=== PATIENT | male | born 1995 | race American Indian/Alaskan Native ===

== ENCOUNTER 2023-08-24 11:17 | Emergency (ER) | payer SELFPAY ==
--- NOTE | ~2023-08-24 | XR_ITS ---
Examination: Bilateral knee and bilateral femur. Clinical indications: Pain. COMPARISON: None. TECHNIQUE: 2 views each femur. Left knee 2 views. FINDINGS: Right knee: The tricompartment joint space is maintained normal. No visible acute fracture or dislocation seen. No loose bodies are bony erosive changes. No joint effusion. Right femur: There is large geographic lucency with irregular sclerotic margins along the right superior medial femoral head suggestive of avascular necrosis changes. No visible acute fracture or dislocation seen. The soft tissues are normal. Left knee: The tricompartment joint space is maintained normal. No acute fracture, dislocation or subluxation. The soft tissues are normal. Left femur: There is geographic lucency with irregular sclerotic margins along the superolateral femoral head without any visible acute fracture or dislocation. There is maintained joint space. The soft tissues are normal. XR/XR knee RT 2V IMPRESSION: Large orogastric lucencies along the superolateral femoral heads bilaterally suggestive of avascular necrosis. Correlate with MRI hips. Unremarkable bilateral knee exam.
--- NOTE | ~2023-08-24 | US_ITS ---
EXAMINATION: US VENOUS ULTRASOUND WITH DOPPLER LOWER EXTREMITY, BILATERAL CLINICAL INFORMATION: Bilateral thigh pain COMPARISON: None available. TECHNIQUE: Ultrasound of the deep veins is performed from the hip to the calf with compression sonography and color and pulse Doppler assessment. Spectral analysis with color-flow imaging is performed. FINDINGS: RIGHT: There is normal venous compression and respiratory variation and augmented flow. The visualized common femoral vein, superficial femoral vein, profunda femoral vein, popliteal vein, and the trifurcation region shows no evidence of deep venous thrombosis. There is no significant popliteal fossa cyst. LEFT: There is normal venous compression and respiratory variation and augmented flow. The visualized common femoral vein, superficial femoral vein, profunda femoral vein, popliteal vein, and the trifurcation region shows no evidence of deep venous thrombosis. There is no significant popliteal fossa cyst. If the patient's symptoms persist, followup ultrasound in 5 days 7 days might be of value to exclude proximal propagation from a non-visualized calf vein. US/US venous duplex LE BI IMPRESSION: No DVT demonstrated in the bilateral lower extremity.
--- NOTE | ~2023-08-24 | XR_ITS ---
Examination: Bilateral knee and bilateral femur. Clinical indications: Pain. COMPARISON: None. TECHNIQUE: 2 views each femur. Left knee 2 views. FINDINGS: Right knee: The tricompartment joint space is maintained normal. No visible acute fracture or dislocation seen. No loose bodies are bony erosive changes. No joint effusion. Right femur: There is large geographic lucency with irregular sclerotic margins along the right superior medial femoral head suggestive of avascular necrosis changes. No visible acute fracture or dislocation seen. The soft tissues are normal. Left knee: The tricompartment joint space is maintained normal. No acute fracture, dislocation or subluxation. The soft tissues are normal. Left femur: There is geographic lucency with irregular sclerotic margins along the superolateral femoral head without any visible acute fracture or dislocation. There is maintained joint space. The soft tissues are normal. XR/XR femur LT 2V IMPRESSION: Large orogastric lucencies along the superolateral femoral heads bilaterally suggestive of avascular necrosis. Correlate with MRI hips. Unremarkable bilateral knee exam.
--- NOTE | ~2023-08-24 | XR_ITS ---
Examination: Bilateral knee and bilateral femur. Clinical indications: Pain. COMPARISON: None. TECHNIQUE: 2 views each femur. Left knee 2 views. FINDINGS: Right knee: The tricompartment joint space is maintained normal. No visible acute fracture or dislocation seen. No loose bodies are bony erosive changes. No joint effusion. Right femur: There is large geographic lucency with irregular sclerotic margins along the right superior medial femoral head suggestive of avascular necrosis changes. No visible acute fracture or dislocation seen. The soft tissues are normal. Left knee: The tricompartment joint space is maintained normal. No acute fracture, dislocation or subluxation. The soft tissues are normal. Left femur: There is geographic lucency with irregular sclerotic margins along the superolateral femoral head without any visible acute fracture or dislocation. There is maintained joint space. The soft tissues are normal. XR/XR femur RT 2V IMPRESSION: Large orogastric lucencies along the superolateral femoral heads bilaterally suggestive of avascular necrosis. Correlate with MRI hips. Unremarkable bilateral knee exam.
--- NOTE | ~2023-08-24 | XR_ITS ---
Examination: Bilateral knee and bilateral femur. Clinical indications: Pain. COMPARISON: None. TECHNIQUE: 2 views each femur. Left knee 2 views. FINDINGS: Right knee: The tricompartment joint space is maintained normal. No visible acute fracture or dislocation seen. No loose bodies are bony erosive changes. No joint effusion. Right femur: There is large geographic lucency with irregular sclerotic margins along the right superior medial femoral head suggestive of avascular necrosis changes. No visible acute fracture or dislocation seen. The soft tissues are normal. Left knee: The tricompartment joint space is maintained normal. No acute fracture, dislocation or subluxation. The soft tissues are normal. Left femur: There is geographic lucency with irregular sclerotic margins along the superolateral femoral head without any visible acute fracture or dislocation. There is maintained joint space. The soft tissues are normal. XR/XR knee LT 2V IMPRESSION: Large orogastric lucencies along the superolateral femoral heads bilaterally suggestive of avascular necrosis. Correlate with MRI hips. Unremarkable bilateral knee exam.
[2023-08-24 11:27] VITALS: BP 135/78; PULSE 88; RESP 18; TEMP 36.8; O2SAT 98; BMI 24.3
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
== END 2023-08-24 14:12 | disposition home or self-care (01) ==
PROVIDERS: Emergency Provider Emergency Medicine
DX: M87.252 Osteonecrosis due to previous trauma, left femur (principal); M87.251 Osteonecrosis due to previous trauma, right femur; G89.29 Other chronic pain; M79.605 Pain in left leg; M79.604 Pain in right leg; M25.552 Pain in left hip; M25.551 Pain in right hip; R60.0 Localized edema
CPT/HCPCS: 73552; 73560; 93970; 99284